=== PATIENT | male | born 1990 | race Caucasian/White ===

== ENCOUNTER 2016-10-28 01:29 | Inpatient (IN) | payer BC, OTHER ==
[~2016-10-28] VITALS: Ht 177.8 cm; Wt 122.7 kg
[2016-10-28] MEDS ORDERED: KETOROLAC 30 MG/ML (TORADOL) 1 ML VIAL IV ONE (02:00)
[2016-10-28] MEDS ORDERED: ONDANSETRON 2 MG/ML (Z0FRAN) 2 ML VIAL IV ONE (02:00)
[2016-10-28] MEDS ORDERED: SODIUM CHLORIDE FLUSH 3 ML SYR IV PRN (02:00)
[2016-10-28] MEDS ORDERED: SODIUM CHLORIDE FLUSH 10 ML SYR IV PRN (02:00)
[2016-10-28 02:12] LABS: MEAN CORPUSCULAR HEMOGLOBIN 30.7 PG (26.0-34.0); MEAN CORPUSCULAR HGB CONC 34.5 g/dL (31.0-37.0); MEAN CORPUSCULAR VOLUME 89 FL (80-100); MEAN PLATELET VOLUME 8.9 FL (6.0-9.5); PLATELET COUNT 212 10^3uL (150-450); WHITE BLOOD COUNT 7.27 10^3uL (4.0-11.0)
[2016-10-28 02:20] LABS: BAND NEUTROPHILS % 1 % (0-6); EOSINOPHILS % 4 % (0-4); LYMPHOCYTES # 3.1 #; MONOCYTES # 0.8 #; MONOCYTES % 12 % (3-11); RBC MORPH NORMAL (NORMAL); SEGMENTED NEUTROPHILS % 40 % (51-67); TOTAL CELLS COUNTED 100
[2016-10-28 02:24] LABS: ALBUMIN 4.2 g/dL (3.4-5.0); ANION GAP 14.8 MEQ/L (3-15); CALCULATED IONIZED CALCIUM 3.7 mg/dL (3.8-4.6); TOTAL PROTEIN 8.1 g/dL (6.4-8.5)
[2016-10-28 02:29] LABS: BILIRUBIN,URINE Negative (Negative); GLUCOSE, URINE (UA) Negative (Negative); LEUKOCYTE ESTERASE ,URINE Negative (Negative); PH,URINE 5.5 (5.0 - 8.0); UROBILINOGEN,URINE 0.2 mg/dL (0.2-1.0)
[2016-10-28 02:34] LABS: CLARITY,URINE Slightly Cloudy; COLOR,URINE Dark Yellow
[2016-10-28 02:35] LABS: RBC,URINE >100 /HPF; URINE CENTRIFUGED VOLUME 12 mL
--- NOTE | 2016-10-28 02:42 | NUR ---
Pt back from ct depart- reports that medication helped with the pain.
[2016-10-28] MEDS ORDERED: ONDANSETRON 2 MG/ML (Z0FRAN) 2 ML VIAL IV PRN (03:20)
[2016-10-28] MEDS ORDERED: ACETAMINOPHEN 325 MG TAB (TYLENOL) PO PRN (03:20)
--- NOTE | 2016-10-28 03:54 | NUR ---
Pt arrives to 319 via w/c from ED. A/Ox4, Resp even and non labored on RA. IVF initiated. Pt c/o L flank pain rated at 4/10; requests pain medication. See admission assessment for further details.
[2016-10-28 04:03] VITALS: BP 128/87
[2016-10-28] MEDS: HYDROmorphone 1 MG/ML (DILAUDID) SYRINGE IV PRN ×5 (04:09→11:02)
--- NOTE | 2016-10-28 04:10 | NUR ---
Dr Donnelly assesses pt via remote monitoring.
--- NOTE | 2016-10-28 04:43 | NUR ---
Pt states that LAC IV is "hurting a little." Asks to have it moved. 20G IV initiated to on second attempt by this nurse. Pt tolerates well.
[2016-10-28 06:33] LABS: BASOPHILS % (AUTO) 0 % (0-2); EOSINOPHILS # (AUTO) 0.1 10^3uL; EOSINOPHILS % (AUTO) 1 % (0-4); LYMPHOCYTES # (AUTO) 1.7 X10^3; MEAN CORPUSCULAR HEMOGLOBIN 30.3 PG (26.0-34.0); MEAN CORPUSCULAR HGB CONC 33.8 g/dL (31.0-37.0); MEAN CORPUSCULAR VOLUME 90 FL (80-100); MONOCYTES # (AUTO) 1.1 X10^3; MONOCYTES % (AUTO) 12 % (3-11); NEUTROPHILS # (AUTO) 6.4 X10^3; NEUTROPHILS % (AUTO) 68 % (51-67); PLATELET COUNT 211 10^3uL (150-450); WHITE BLOOD COUNT 9.49 10^3uL (4.0-11.0)
--- NOTE | 2016-10-28 06:55 | NUR ---
received report from Cha Berg RN. Assumed patient care. Patient was sitting up in bed with television on. Patiemnt was alert and oriented x 3. Patient denied needs.
[2016-10-28 07:01] LABS: ANION GAP 13.4 MEQ/L (3-15)
[2016-10-28] MEDS ORDERED: NS FLUSH 3 ML PRN IV (07:50)
[2016-10-28] MEDS ORDERED: NS FLUSH 10 ML PRN IV (07:50)
[2016-10-28 07:53] VITALS: BP 133/71
[2016-10-28] MEDS ORDERED: TAMSULOSIN 0.4 MG (FLOMAX) CAP PO ONE (09:00)
[2016-10-28] MEDS ORDERED: NS FLUSH 3 ML DAILY IV SCH (09:00)
[2016-10-28 11:39] VITALS: BP 125/78
--- NOTE | 2016-10-28 11:41 | NUR ---
MED REC COMPLETE--current med list obtained from patient interview.
[2016-10-28] MEDS ORDERED: HYDROcodone/APAP 5 MG/325 MG (NORCO) TAB PO PRN (12:30)
== END 2016-10-28 14:31 | disposition home or self-care (01) | DRG 694 ==
LOC: ED 01:31 → MED/SURG 03:00
PROVIDERS: ADMIT Emergency Medicine; ATTEND Emergency Medicine
DX: N20.1 Calculus of ureter (principal); N17.9 Acute kidney failure, unspecified; K51.90 Ulcerative colitis, unspecified, without complications
CPT/HCPCS: 36415; 74020; 74176; 80048; 80053; 81003; 81015; 82150; 83690; 85025; 86140; 96374; 96375; 99283; 99284

== ENCOUNTER 2016-10-31 14:30 | Outpatient (RCR) | payer BC ==
[~2016-10-31 14:30] MED LIST: ACET325T38 PO; CETI-262 PO; HCA25SU PR; HYDR-3702 PO; INFL100V IV; LEVO500T16 PO; LORA10TA7 PO; MERC50TA PO; MESA0.372 PO; MNTL10T PO; PRED20TA PO; TAMS-8 PO
== END 2017-01-04 19:19 | disposition home or self-care (01) ==
LOC: LAB 14:30 → EDSTATUS 14:38 → LAB 01-04 19:19
PROVIDERS: ATTEND Family Medicine
DX: Z53.9 Procedure and treatment not carried out, unspecified reason (principal)

== ENCOUNTER → 2016-11-02 | Outpatient (CLI) | payer BC | LOC: LAB 13:32 | PROVIDERS: ATTEND Family Medicine | DX: N23 Unspecified renal colic (principal) | CPT/HCPCS: 81003; 82131; 82140; 82340; 82436; 82507; 82570; 83735; 83935; 83945; 84105; 84133 ==